=== PATIENT | female | born 1995 | race Caucasian/White ===

== ENCOUNTER 2020-01-19 07:47 | Emergency (ER) | payer SELFPAY ==
[~2020-01-19] VITALS: Ht 172.7 cm; Wt 66.8 kg
[2020-01-19 08:04] VITALS: BP 114/66; Ht 172.7 cm; Wt 66.8 kg
== END 2020-01-19 09:35 | disposition home or self-care (01) ==
LOC: D.ER 07:47
DX: Z20.2 Contact with and (suspected) exposure to infections with a predominantly sexual mode of transmission (principal); N89.8 Other specified noninflammatory disorders of vagina